=== PATIENT | female | born 1940 | race Caucasian/White ===

== ENCOUNTER 2019-05-16 12:42 | Inpatient (IN) | payer OTHER ==
[~2019-05-16] VITALS: Ht 170.2 cm; Wt 79.3 kg
[2019-05-16 12:44] VITALS: BP 149/91
[2019-05-16 13:13] LABS: BASOPHILS 0.9 % (0.0-2.0); EOSINOPHILS 1.4 % (0.0-3.0); HEMATOCRIT 42.7 % (37.0-47.0); HEMOGLOBIN 14.7 gm/dL (12.0-15.0); LYMPHOCYTES 19.6 % (24.0-44.0); MCHC 34.4 g/dL (28.0-37.0); MONOCYTES 8.5 % (1.0-8.0); PLATELET COUNT 190 thou/uL (150-400); POLYS 69.6 % (36.0-66.0); RBC 4.74 mil/uL (4.20-5.00); RDW 13.6 % (10.5-14.5); WBC 7.1 thou/uL (4.0-11.0)
[2019-05-16 13:27] LABS: ANION GAP 10 mmol/L (7-16); APTT 24.7 Seconds (24.5-32.8); BUN 19 mg/dL (7-18); CALCIUM 9.7 mg/dL (8.5-10.1); CHLORIDE 97 mmol/L (98-107); CO2 29 mmol/L (21-32); CREATININE 0.9 mg/dL (0.6-1.0); GLUCOSE 118 mg/dL (74-106); POTASSIUM 3.5 mmol/L (3.5-5.1); PROTIME 10.7 Seconds (9.3-11.4); SODIUM 136 mmol/L (136-145)
[2019-05-16 13:37] LABS: ALBUMIN 3.6 g/dL (3.4-5.0); SGOT 33 U/L (15-37); SGPT 32 U/L (30-65); TOTAL BILIRUBIN 0.5 mg/dL (<0.1-1.0); TOTAL PROTEIN 7.7 g/dL (6.4-8.2); TROPONIN-I <0.06 ng/mL (<0.06)
[2019-05-16] MEDS ORDERED: INDAPAMIDE2.5 MG PO (13:39)
[2019-05-16] MEDS ORDERED: K-DUR10 MEQ PO (13:39)
[2019-05-16] MEDS ORDERED: TELMISARTAN40 MG PO (13:40)
[2019-05-16] MEDS ORDERED: PRAVACHOL40 MG PO (13:40)
[2019-05-16] MEDS ORDERED: ALENDRONATE SOD70 MG PO (13:40)
[2019-05-16] MEDS ORDERED: CENTRUM SILVER1 EAC4 PO (14:14)
[2019-05-16] MEDS ORDERED: L-LYSINE500 M1 PO (14:14)
[2019-05-16] MEDS ORDERED: CITRACAL + D E1 EACH PO (14:15)
[2019-05-16 14:59] VITALS: BP 122/67
[2019-05-16 15:01] VITALS: BP 122/67
[2019-05-16 15:19] LABS: AMP/METHAMP Negative (Negative); BARBITURATES Negative (Negative); BENZODIAZEPINES Negative (Negative); COCAINE Negative (Negative); METHADONE Negative (Negative); OPIATES Negative (Negative); PCP Negative (Negative)
[2019-05-16 15:22] LABS: ALBUMIN 3.7 g/dL (3.4-5.0); TOTAL PROTEIN 7.7 g/dL (6.4-8.2)
[2019-05-16 17:23] LABS: CHOLESTEROL 183 mg/dL (<200); HDL CHOLESTEROL 65 mg/dL (>40); LDL CHOLESTEROL 105 mg/dL (<100); TC:HDL 2.8 Ratio (Not establshd); TRIGLYCERIDE 68 mg/dL (<150); VLDL 14 mg/dL (<40)
--- NOTE | 2019-05-16 17:45 | NUR ---
79 YO FEMALE ADMITTED TO 209 FROM ED. VSS, ALERT AND ORIENTED X 4, CARDIZEM GTT AT 10, C/O PAIN IN LOWER BACK WITH MOVEMENT, AT BEDSIDE, WILL CONTINUE TO MONITOR
[2019-05-16 18:00] VITALS: BP 174/99
[2019-05-16 19:55] VITALS: BP 118/62
[2019-05-17] VITALS (9 sets, daily range): BP systolic 103–132; BP diastolic 50–76
[2019-05-17 01:28] LABS: HEMATOCRIT 40.8 % (37.0-47.0); MCH 30.8 pg (26.0-34.0); MCHC 34.4 g/dL (28.0-37.0); MCV 89.6 fL (80.0-100.0); RBC 4.55 mil/uL (4.20-5.00); RDW 13.6 % (10.5-14.5)
[2019-05-17 01:39] LABS: CALCIUM 8.6 mg/dL (8.5-10.1); CREATININE 0.9 mg/dL (0.6-1.0); MAGNESIUM 1.7 mg/dL (1.8-2.4)
--- NOTE | 2019-05-17 04:55 | NUR ---
ASSESSMENT DOCUMENTED.PT BEEN RESTING IN NO ACUTE DISTRESS.ADMITTED WITH LOWER BACK PAIN AND AFIB W/RVR.PT DENIES PAIN TO LOWER BACK.REMAINS ON CARDIZEM DRIP AT 5MG/HR.VSS.DENIES CHEST PAIN.ON MONITOR SA WITH PVCS.REPLACED MAGNESIUM AND POTASSIUM.STANDBY ASSIST TO BR.POC IS TO HAVE ECHO THIS AM.
--- NOTE | 2019-05-17 07:53 | EKG ---
[place] [address] [facility] [place] [address] ELECTROCARDIOGRAM REPORT Name: TABATHA BLACK Room #: 209-P ADM IN M.R.#: [id number] Admission: 05/16/19 Attend Phys: Lane Chacon MD Discharge: Date of : 42 Report #: [id number] THIS REPORT FOR: //name// [facility] ED Test Date: 2019-05-16 Test Time: 12:47:55 Pat Name: TABATHA BLACK Department: Room: 209 Gender: F Qa Test Lead: RIA : 1940 Requested By: Noe George Order Number: [id number] MD: Cristobal Del Castillo Measurements Intervals Rheems Rate: 146 P: RI: QRS: 9 QRSD: 92 T: 81 QT: 289 QTc: 451 Interpretive Statements Atrial fibrillation with rapid V-rate Occasional premature ventricular complexes Poor R wave progression Nonspecific ST and T wave abnormality No previous ECG available for comparison Electronically Signed On 05-17-2019 7:52:53 CDT by Cristobal Del Castillo [email or web address] <ELECTRONICALLY SIGNED> By: Cristobal Del Castillo MD, [facility] 05/17/19 0752 [id number] Cristobal Del Castillo MD, [facility] /EPI
--- NOTE | 2019-05-17 09:48 | 2DMMODE ---
[facility] [address] [place] [address] 2 D/M-MODE ECHOCARDIOGRAM Name: TABATHA BLACK Room #: 209-P [facility] IN M.R.#: [id number] Admission: 05/16/19 Attend Phys: Lane Chacon, Discharge: Date of : 42 Date of Service: 05/17/19 0948 Report #: [id number] THIS REPORT FOR: //name// APPROVED REPORT Study performed: 05/17/2019 08:39:19 EXAM: Comprehensive 2D, Doppler, and color-flow Echocardiogram Patient Location: Bedside Room #: 209 Status: routine BSA: 1.91 HR: 68 bpm BP: 112/58 mmHg Other Information Study Quality: Adequate Indications Hypertension/HDD Afib with RVR, HLD 2D Dimensions RVDd: 34.27 mm IVSd: 11.72 (7-11mm) LVOT Diam: 19.51 (18-24mm) LVDd: 42.33 mm PWd: 10.72 (7-11mm) Ascending Ao: 30.89 (22-36mm) LVDs: 26.05 (25-40mm) Aortic Root: 29.22 mm IVC: 13.00 mm Volumes Left Atrial Volume (Systole) Single Plane 4CH: 48.88 mL Single Plane 2CH: 42.12 mL LA ESV Index: 29.00 mL/m2 Aortic Valve AoV Peak Santy.: 1.49 m/s AO Peak Gr.: 8.93 mmHg LVOT Max P.68 mmHg LVOT Max V: 0.96 m/s DAVIS Vmax: 1.92 cm2 Mitral Valve E/A Ratio: 1.1 MV Decel. Time: 176.70 ms MV E Max Santy.: 0.82 m/s [facility] [address] [place] [address] 2 D/M-MODE ECHOCARDIOGRAM Name: TABATHA BLACK Room #: 209-P [facility] IN M.R.#: [id number] Admission: 05/16/19 Attend Phys: Lane Chacon, Discharge: Date of : 42 Date of Service: 05/17/19 0948 Report #: [id number] MV A Santy.: 0.78 m/s MV PHT: 51.24 ms IVRT: 110.73 ms Pulmonary Valve PV Peak Santy.: 0.91 m/s PV Peak Gr.: 3.32 mmHg Pulmonary Vein P Vein S: 0.70 m/s P Vein A: 0.15 m/s P Vein D: 0.40 m/s P Vein A Dur.: 87.7 msec P Vein S/D Ratio: 1.75 Tricuspid Valve TR Peak Santy.: 2.64 m/s RAP Estimate: 5.00 mmHg TR Peak Gr.: 27.83 mmHg PA Pressure: 33.00 mmHg Left Ventricle The left ventricle is normal size. There is normal LV segmental wall motion. Mild concentric left ventricular hypertrophy. The left ventricular systolic function is normal. The left ventricular ejection fraction is within the normal range. LVEF is 60-65%. The left ventricular diastolic function is normal. Right Ventricle The right ventricle is normal size. The right ventricular systolic function is normal. Atria The left atrium size is normal. The right atrium size is normal. Aortic Valve The aortic valve is normal in structure. No aortic regurgitation is present. There is no aortic valvular stenosis. Mitral Valve The mitral valve is normal in structure. Mild to moderate mitral regurgitation. No evidence of mitral valve stenosis. Tricuspid Valve The tricuspid valve is normal in structure. Mild tricuspid regurgitation. PAP is estimated at 33 mmHg. Pulmonic Valve The pulmonary valve is normal in structure. [place] [address] 2 D/M-MODE ECHOCARDIOGRAM Name: TABATHA BLACK Room #: 209-P [facility] IN [facility]#: [id number] Admission: 05/16/19 Attend Phys: Lane Chacon, Discharge: Date of : 42 Date of Service: 05/17/19 0948 Report #: [id number] valvular regurgitation. Great Vessels The aortic root is normal in size. IVC is normal in size and collapses >50% with inspiration. Pericardium There is no pericardial effusion. <Conclusion> The left ventricular systolic function is normal. There is normal LV segmental wall motion. LVEF is 60-65%. The aortic valve is normal in structure. No aortic regurgitation or stenosis The mitral valve is normal in structure. Mild to moderate mitral regurgitation. Mild tricuspid regurgitation. Pulmonary artery pressure estimated at 33 mmHg. There is no pericardial effusion. <ELECTRONICALLY SIGNED> By: Cristobal Del Castillo MD, [facility] 05/17/1947 7 7 Cristobal Del Castillo MD, FACC /INF
[2019-05-17] MEDS ORDERED: METOPROLOL SUCC50 MG PO (11:22)
[2019-05-17] MEDS ORDERED: ELIQUIS5 MG PO (11:22)
--- NOTE | 2019-05-17 16:28 | NUR ---
VSS REMAINS NSR WITH FREQUENT PVC'S AND PAC'S. NOW OFF CARDIZEM GTT AND ON PO MEDS. LUNGS CLEAR, RA SAT IS 96%. UP IN ROOM WITHOUT C/O CHESTPAIN AND SOB.WILL CONTINUE TO MONITER AND CARE FOR PT PER PLANOF CARE
--- NOTE | 2019-05-18 02:32 | NUR ---
ASSESSMENT DOCUMENTED.PT BEEN RESTING IN NO ACUTE DISTRESS.VSS.SR/SA ON MONITOR.PT DENIES CHEST PAIN OR PAIN.ZIO OPERATIONS MANAGER IN PLACE.POC IS TO DISCHARGE TO HOME TODAY.WILL CONT TO MONITOR PER POC.
[2019-05-18 04:45] VITALS: BP 137/85; BP 143/74
[2019-05-18 04:50] LABS: CALCIUM 8.9 mg/dL (8.5-10.1); CREATININE 0.7 mg/dL (0.6-1.0); MAGNESIUM 2.1 mg/dL (1.8-2.4)
[2019-05-18 05:14] LABS: POTASSIUM 2.9 mmol/L (3.5-5.1)
[2019-05-18 05:28] LABS: HEMOGLOBIN 14.7 gm/dL (12.0-15.0); MCHC 34.2 g/dL (28.0-37.0); MCV 90.7 fL (80.0-100.0); RBC 4.74 mil/uL (4.20-5.00); RDW 13.5 % (10.5-14.5); WBC 10.4 thou/uL (4.0-11.0)
[2019-05-18 07:53] VITALS: BP 137/67
[2019-05-18 09:23] VITALS: BP 137/67
[2019-05-18 11:05] VITALS: BP 129/72
[2019-05-18 13:54] VITALS: BP 112/58
--- NOTE | 2019-05-18 14:10 | NUR ---
ASSUMED CARE OF PT AT SHIFT CHANGE. ASSESSMENTS CHARTED. MEDS GIVEN PER NOV. PT ALERT AND ORIENTED, VSS, DENIES PAIN, NO C/O SOB OR CHEST PAIN. O2 SATS WNL ON ROOM AIR. DC ORDERS ACKNOWLEDGED AND IMPLEMENTED, DC PAPERWORK DISCUSSED WITH PT. COMMUNICATES UNDERSTANDING. PT LEFT UNIT AT 1410 WITH ALL BELONGINGS ACCOMPANIED BY . IV REMOVED. TELE REMOVED.
== END 2019-05-18 14:10 | disposition home or self-care (01) | DRG 552 ==
LOC: ER 12:42 → 2N 14:40 → EROBS 14:40 → 2N 15:44
PROVIDERS: Emergency Medicine; ADMIT Internal Medicine
DX: M51.26 Other intervertebral disc displacement, lumbar region (principal); I48.91 Unspecified atrial fibrillation; E78.5 Hyperlipidemia, unspecified; M54.30 Sciatica, unspecified side; E87.6 Hypokalemia; I11.0 Hypertensive heart disease with heart failure; M81.0 Age-related osteoporosis without current pathological fracture; R53.81 Other malaise; E83.42 Hypomagnesemia; I50.9 Heart failure, unspecified; Z88.0 Allergy status to penicillin; Z87.891 Personal history of nicotine dependence; Z79.82 Long term (current) use of aspirin; Z79.899 Other long term (current) drug therapy; Z98.49 Cataract extraction status, unspecified eye; Z90.710 Acquired absence of both cervix and uterus
CPT/HCPCS: 10081

== ENCOUNTER → 2020-06-22 | Outpatient (CLI) | payer OTHER ==
[~2020-06-22] MED LIST: ALENDRONATE SOD70 MG PO; CENTRUM SILVER1 EAC4 PO; CITRACAL + D E1 EACH PO; ELIQUIS5 MG PO; INDAPAMIDE2.5 MG PO; K-DUR10 MEQ PO; L-LYSINE500 M1 PO; METOPROLOL SUCC50 MG PO; PRAVACHOL40 MG PO; TELMISARTAN40 MG PO
== END ==
LOC: SJCVC 14:03
PROVIDERS: ATTEND Internal Medicine Cardiovascular Disease
DX: R94.31 Abnormal electrocardiogram [ECG] [EKG] (principal); I48.91 Unspecified atrial fibrillation; I11.0 Hypertensive heart disease with heart failure; I50.9 Heart failure, unspecified; E78.5 Hyperlipidemia, unspecified; Z79.899 Other long term (current) drug therapy; Z87.891 Personal history of nicotine dependence

== ENCOUNTER → 2020-12-21 | Outpatient (CLI) | payer OTHER | LOC: SJCVC 12:58 | PROVIDERS: ATTEND Internal Medicine Cardiovascular Disease | DX: I48.0 Paroxysmal atrial fibrillation (principal); E78.00 Pure hypercholesterolemia, unspecified; E78.5 Hyperlipidemia, unspecified; R42 Dizziness and giddiness; R55 Syncope and collapse; I12.9 Hypertensive chronic kidney disease with stage 1 through stage 4 chronic kidney disease, or unspecified chronic kidney disease; I50.9 Heart failure, unspecified; Z88.0 Allergy status to penicillin; Z79.899 Other long term (current) drug therapy; Z87.891 Personal history of nicotine dependence ==

== ENCOUNTER → 2021-06-28 | Outpatient (CLI) | payer OTHER | LOC: SJCVC 13:35 | PROVIDERS: ATTEND Internal Medicine Cardiovascular Disease | DX: I48.91 Unspecified atrial fibrillation (principal); I10 Essential (primary) hypertension; R55 Syncope and collapse; I11.0 Hypertensive heart disease with heart failure; I50.9 Heart failure, unspecified; E78.5 Hyperlipidemia, unspecified; Z88.0 Allergy status to penicillin; Z79.899 Other long term (current) drug therapy; Z87.891 Personal history of nicotine dependence ==